=== PATIENT | female | born 1980 | race Caucasian/White ===

== ENCOUNTER → 2016-08-23 | Outpatient (CLI) | payer BC ==
[~2016-08-23] MED LIST: COLACE100 MG PO; DERMOPLAST SPRA56 GM TOP; FLINTSTONES CO1 EAC1 PO; IRON325 M1 PO; MOTRIN800 MG PO; OSCAL + D500 MG PO; PERCOCET 5-3251 EACH PO; TUCKS1 EACH TOP
== END | disposition disaster alternative care site (69) ==
LOC: GLAB 08:00
DX: R73.09 Other abnormal glucose (principal)